=== PATIENT | male | born 1965 | race Two or more races ===

== ENCOUNTER 2021-01-21 10:21 | Emergency (ER) | payer MEDICAID ==
[~2021-01-21] VITALS: Ht 177.8 cm; Wt 79.4 kg
[2021-01-21 10:24] VITALS: BP 137/96
[2021-01-21] MEDS ORDERED: KETOROLAC TROMETH 60MG/2ML VIAL IM ONE (11:30)
== END 2021-01-21 12:43 | disposition home or self-care (01) ==
LOC: ER 10:21
DX: M51.16 Intervertebral disc disorders with radiculopathy, lumbar region (principal); F17.210 Nicotine dependence, cigarettes, uncomplicated
CPT/HCPCS: 72100; 81002; 96372; 99283; J1885

== ENCOUNTER 2021-01-28 09:19 | Emergency (ER) | payer MEDICAID ==
[~2021-01-28] VITALS: Ht 177.8 cm; Wt 77.1 kg
[2021-01-28 10:05] VITALS: BP 178/105
[2021-01-28] MEDS ORDERED: HYDROcodone-ACET 10/325MG TAB PO ONE (10:45)
== END 2021-01-28 11:22 | disposition home or self-care (01) ==
LOC: ER 09:19
DX: M51.16 Intervertebral disc disorders with radiculopathy, lumbar region (principal); F17.210 Nicotine dependence, cigarettes, uncomplicated

== ENCOUNTER 2021-02-02 09:20 | Emergency (ER) | payer MEDICAID ==
[~2021-02-02] VITALS: Ht 177.8 cm; Wt 77.1 kg
[2021-02-02] MEDS ORDERED: MEPERIDINE HCL (50 MG/ML) 1 ML VIAL IM ONE (10:45)
[2021-02-02] MEDS ORDERED: PROMETHAZINE HCL 25 MG/ML 1ML IM ONE (10:45)
[2021-02-02 11:22] VITALS: BP 168/90
== END 2021-02-02 11:31 | disposition home or self-care (01) ==
LOC: ER 09:20
DX: M48.061 Spinal stenosis, lumbar region without neurogenic claudication (principal); M54.16 Radiculopathy, lumbar region; G89.29 Other chronic pain; F17.210 Nicotine dependence, cigarettes, uncomplicated
CPT/HCPCS: 72131; 96372; 99284; J2175; J2550